=== PATIENT | female | born 1970 ===

== ENCOUNTER → 2020-04-07 15:41 | Outpatient (BNV) | payer OTHER, SELFPAY | PROVIDERS: PCP Internal Medicine; Visit Provider Internal Medicine | DX: D72.829 Elevated white blood cell count, unspecified (principal); Z00-Z99 Factors influencing health status and contact with health services; Z85.71 Personal history of Hodgkin lymphoma; Z92.21 Personal history of antineoplastic chemotherapy | CPT/HCPCS: 99213; 99214 ==

== ENCOUNTER 2020-05-06 16:45 | Emergency (ER) | payer OTHER, SELFPAY ==
[2020-05-06 16:51] VITALS: BP 174/102; PULSE 79; RESP 16; TEMP 36.7; O2SAT 100; BMI 32.5
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
== END 2020-05-06 18:53 | disposition home or self-care (01) ==
PROVIDERS: Emergency Provider Emergency Medicine; PCP Internal Medicine
DX: S29.012A Strain of muscle and tendon of back wall of thorax, initial encounter (principal); M54.6 Pain in thoracic spine; V43.52XA Car driver injured in collision with other type car in traffic accident, initial encounter; Y93.9 Activity, unspecified; Y92.410 Unspecified street and highway as the place of occurrence of the external cause; Y99.9 Unspecified external cause status; Z87.891 Personal history of nicotine dependence; Z79.899 Other long term (current) drug therapy
CPT/HCPCS: 99283; 99284

== ENCOUNTER 2020-07-15 14:41 | Outpatient (REF) | payer OTHER, SELFPAY ==
--- NOTE | 2020-07-15 14:49 | XR_ITS ---
EXAMINATION: XR CERVICAL SPINE XR LUMBAR SPINE XR ELBOW, RIGHT XR HAND, LEFT CLINICAL INFORMATION: Pain. COMPARISON: None TECHNIQUE: Lumbar spine 3 views. Cervical spine 3 views, left hand 3 views and right elbow 3 views. FINDINGS: LUMBAR SPINE: There is maintained lumbar lordosis. The vertebral heights, alignment and disc heights are normal. There is no visible acute fracture, dislocation or subluxation seen. The SI joints are symmetrical. The paravertebral soft tissues are normal. CERVICAL SPINE: There is normal cervical lordosis. There is loss of C5-C6 and C6-C7 disc heights. Rest the disc heights, vertebral heights and alignment is normal. No visible acute fracture, dislocation or lytic process seen. The paravertebral soft tissues are normal. RIGHT ELBOW: There is no visible acute fracture, dislocation or subluxation. There is mild spurring along the anterior coronoid process of the ulna. No loose body seen. No bony erosive changes. No abnormal joint effusion. LEFT HAND: There is minimal loss of 1st MCP joint with periarticular spurring. Mild periapical spurring IP joint 1st digit with old small avulsion bone injury noted. Rest of the left hand is unremarkable. The soft tissues are normal. XR/XR elbow RT min 3V IMPRESSION: 1. Unremarkable lumbar spine exam. 2. Mild degenerative changes C5-C6 and C6-C7 disc levels. 3. Mild degenerative spurring anterior groin process right elbow. No loose bodies, joint effusion or fracture. 4. Degenerative osteophytic changes MCP joint and PIP joint 1st digit. There is an old avulsion injury PIP joint 1st digit.
--- NOTE | 2020-07-15 14:49 | XR_ITS ---
EXAMINATION: XR CERVICAL SPINE XR LUMBAR SPINE XR ELBOW, RIGHT XR HAND, LEFT CLINICAL INFORMATION: Pain. COMPARISON: None TECHNIQUE: Lumbar spine 3 views. Cervical spine 3 views, left hand 3 views and right elbow 3 views. FINDINGS: LUMBAR SPINE: There is maintained lumbar lordosis. The vertebral heights, alignment and disc heights are normal. There is no visible acute fracture, dislocation or subluxation seen. The SI joints are symmetrical. The paravertebral soft tissues are normal. CERVICAL SPINE: There is normal cervical lordosis. There is loss of C5-C6 and C6-C7 disc heights. Rest the disc heights, vertebral heights and alignment is normal. No visible acute fracture, dislocation or lytic process seen. The paravertebral soft tissues are normal. RIGHT ELBOW: There is no visible acute fracture, dislocation or subluxation. There is mild spurring along the anterior coronoid process of the ulna. No loose body seen. No bony erosive changes. No abnormal joint effusion. LEFT HAND: There is minimal loss of 1st MCP joint with periarticular spurring. Mild periapical spurring IP joint 1st digit with old small avulsion bone injury noted. Rest of the left hand is unremarkable. The soft tissues are normal. XR/XR cervical spine 2V IMPRESSION: 1. Unremarkable lumbar spine exam. 2. Mild degenerative changes C5-C6 and C6-C7 disc levels. 3. Mild degenerative spurring anterior groin process right elbow. No loose bodies, joint effusion or fracture. 4. Degenerative osteophytic changes MCP joint and PIP joint 1st digit. There is an old avulsion injury PIP joint 1st digit.
== END 2020-07-15 14:42 | disposition home or self-care (01) ==
LOC: HO.XRAY 14:41
PROVIDERS: PCP Internal Medicine; Visit Provider Internal Medicine
DX: M54.2 Cervicalgia (principal); M54.5 Low back pain; M25.521 Pain in right elbow; M79.642 Pain in left hand
CPT/HCPCS: 72040; 72100; 73080; 73130

== ENCOUNTER 2020-10-13 15:54 | Outpatient (REF) | payer OTHER, SELFPAY ==
[2020-10-13 16:25] LABS: MANUAL DIFF FLAG NO
[2020-10-13 16:35] LABS: Basophils Absolute Auto 0.1 X10*3/uL (0.0-0.2); Basophils Percent Auto 1.1 % (0-2); Eosinophils Absolute Auto 0.3 X10*3/uL (0.0-0.4); Eosinophils Percent Auto 3.4 % (0-4); Hemoglobin 12.5 g/dl (12.0-16.0); Imm Gran Abs Auto 0.03 X10*3/uL (0.00-0.03); Imm Gran Pct Auto 0.3 % (0.0-0.4); Lymphocytes Absolute Auto 3.4 X10*3/uL (1.2-4.9); Lymphocytes Percent Auto 35.8 % (20-40); Mean Corpuscular HGB Conc 32.1 g/dl (31.0-35.0); Mean Corpuscular Volume 87.4 fL (80-98); Mean Platelet Volume 11.6 fL (9.4-12.3); Monocytes Absolute Auto 0.7 X10*3/uL (0.1-1.2); Monocytes Percent Auto 7.5 % (2-11); Neutrophils Percent Auto 51.9 % (45-73); Platelet Count 314 X10*3/uL (160-400); Red Blood Count 4.46 X10*6/uL (4.20-5.50); Red Cell Distribution Width 14.4 % (11.0-16.0); White Blood Count 9.6 X10*3/uL (4.8-10.8)
[2020-10-13 17:04] LABS: Alanine Aminotransferase 25 U/L (0-31); Albumin Level 4.2 g/dL (3.5-5.0); Alkaline Phosphatase 140 U/L (39-117); Anion Gap 12 (12-20); Aspartate Amino Transferase 20 U/L (5-31); Bilirubin Total 0.3 mg/dL (0.0-1.0); Blood Urea Nitrogen 12 mg/dL (9-16); Calcium 9.6 mg/dL (8.4-10.2); Carbon Dioxide 27 mmol/L (22-29); Chloride 105 mmol/L (96-108); Estimated Glomerular Filt Rate > 60; Glucose Random 73 mg/dL (60-115); Potassium 4.1 mmol/L (3.3-5.1); Sodium 140 mmol/L (135-145); Total Protein 6.7 g/dL (6.5-8.0)
[2020-10-13 18:16] LABS: Erythrocyte Sedimentation Rate 10 MM/HR (0-20)
== END 2020-10-13 15:55 | disposition home or self-care (01) ==
LOC: HO.LAB 15:54
PROVIDERS: PCP Internal Medicine; Visit Provider Internal Medicine
DX: C81.90 Hodgkin lymphoma, unspecified, unspecified site (principal)
CPT/HCPCS: 36415; 80053; 85025; 85652

== ENCOUNTER 2021-04-06 14:01 | Outpatient (REF) | payer OTHER, SELFPAY ==
--- NOTE | ~2021-04-06 | MM_ITS ---
EXAMINATION: MM SCREENING DIGITAL BREAST TOMOSYNTHESIS, BILATERAL CLINICAL INFORMATION: Left breast cancer, 2013. NHL 2015. Due for yearly. COMPARISON: Mammography: 12/20/2019, 12/14/2018, 11/16/2017. TECHNIQUE: Digital breast tomosynthesis is performed in both the craniocaudal and mediolateral oblique views along with computer-aided detection (CAD). Synthesized 2D images are generated from the tomosynthesis. FINDINGS: There are scattered areas of fibroglandular density (ACR BI-RADS breast composition Category b). There are minor stable post therapy changes left breast similar to prior exams. No significant masses, abnormal calcifications, or other abnormalities in either breast. No developing density. The axilla are unremarkable. MM/MM tomosynthesis screening BI IMPRESSION: There are no significant changes from prior exams. Post therapy changes left breast, stable. ASSESSMENT: BI-RADS 2: Benign RECOMMENDATION: Routine annual mammography screening. This patient's information was entered into a reminder system with a target due date for their next mammogram.
== END 2021-04-06 14:02 | disposition home or self-care (01) ==
LOC: HO.MAMMO 14:01
PROVIDERS: PCP Internal Medicine; Visit Provider Internal Medicine
DX: Z12.31 Encounter for screening mammogram for malignant neoplasm of breast (principal)
CPT/HCPCS: 77063; 77067

== ENCOUNTER 2022-04-13 15:43 | Outpatient (REF) | payer OTHER, SELFPAY ==
--- NOTE | ~2022-04-13 | MM_ITS ---
EXAMINATION: MM SCREENING DIGITAL BREAST TOMOSYNTHESIS, BILATERAL CLINICAL INFORMATION: Left lumpectomy for breast cancer, 2013. History non-Hodgkin's lymphoma, 2015. Due for yearly. COMPARISON: Mammography: 04/06/2021, 12/20/2019, 12/14/2018 TECHNIQUE: Digital breast tomosynthesis is performed in both the craniocaudal and mediolateral oblique views along with computer-aided detection (CAD). Synthesized 2D images are generated from the tomosynthesis. FINDINGS: There are scattered areas of fibroglandular density (ACR BI-RADS breast composition Category b). There are post therapy changes on the left with mild reduced breast size and stable scarring. Again, there is benign dystrophic calcification within the scar. Neither breast shows interval mass or architectural abnormality or abnormal calcifications. No developing density. The axilla and skin contours are unremarkable. No significant changes. MM/MM tomosynthesis screening BI IMPRESSION: -No mammographic evidence of malignancy. -Stable benign post therapy changes left breast. ASSESSMENT: BI-RADS 2: Benign RECOMMENDATION: Routine annual mammography screening. This patient's information was entered into a reminder system with a target due date for their next mammogram.
== END 2022-04-13 15:44 | disposition home or self-care (01) ==
LOC: HO.MAMMO 15:43
PROVIDERS: PCP Internal Medicine; Visit Provider Internal Medicine
DX: Z12.31 Encounter for screening mammogram for malignant neoplasm of breast (principal)
CPT/HCPCS: 77063; 77067

== ENCOUNTER 2023-01-02 16:14 | Outpatient (AMB) | payer OTHER, SELFPAY ==
--- NOTE | 2023-01-02 16:17 | A.OFFPC_ITS ---
Vital Signs 01/02/23 16:18 Height 5 ft Weight 171 lb BMI 33.4 BP 122/80 Blood Pressure Location Lt brachial Position Sitting Intake Visit Reasons: PHYSICAL Intake Note: Patient here for a physical exam Yoghurt Maker Required: No Accompanied by: Self / Same As Patient Allergies fluconazole [From DIFLUCAN] Allergy (Mild, Verified 01/02/23 16:27) RASH codeine [CODEINE] Allergy (Unknown, Verified 01/02/23 16:27) migriane Medication List - Last Reconciled 01/02/23 by Mariella Morel MD No Known Home Meds Tobacco use date assessed: 07/06/22 Dental Screening Dental Screen Date: 01/02/23 Did you have a dental visit in the last 12 months?: Yes Did you have a dental problem in the last 6 months where you did not have access to dental care?: No Was dental information given to patient?: Patient has dentist HPI HPI Comments History of Present Illness Details This is a 52-year-old female that comes for her physical exam. She has history of Hodgkin's lymphoma and breast cancer in remission. Last colonoscopy was 2019 showing fragments of tubular adenoma and next colonoscopy should be 2024. Last mammogram was March 2022 and was normal. She will call OBGYN to make an appointment for Pap smear. No chest pain or shortness of breath. Some leg edema and pain and is asking for compression stockings. COUNT INCLUDES THE [facility] Medical History Breast cancer Left hand pain Low back pain Malignant lymphoma, non-Hodgkin's Neck pain Right elbow pain Surgical History History of section History of colonoscopy History of left breast biopsy History of left salpingo-oophorectomy History of mammogram History of right salpingo-oophorectomy Family History Father Stroke FH: testicular cancer Mother Hypertension Asthma Maternal Grandmother Leukemia Social History (Updated 01/02/23 @ 16:31 by Mariella Morel MD) Household Members: Family Housing: Apartment Alcohol intake: current Alcohol intake frequency: holidays/special occasions only Alcohol type: wine and hard liquor Patient Tobacco Use Status: Current someday Tobacco user Tobacco use type: Cigarette e-Cigarette/Vaping Use: Never Used Second Hand Smoke Exposure: No service: No Current occupational status: employed Current occupational exposures/hazards: No Cognitive needs: No Hearing needs: No Vision needs: No Questionnaire Thrive Questionnaire Date Thrive assessed: 07/06/22 LUPE-7 AMB Questionnaire LUPE-7 Date LUPE - 7 assessed: 07/06/22 Source: Developed by Drs. Reinier Conley, Laure Curry, Gume Power and colleagues, with an educational jose from [employer]. Review of Systems Const All systems reviewed & are unremarkable except as noted in HPI and below Eyes Reports no additional complaints, Denies change in vision and Denies other visual disturbances Card Denies chest pain at rest, Denies chest pain with activity, Denies edema, Denies irregular heart rhythm, Denies claudication, Denies dyspnea, Denies dyspnea on exertion, Denies orthopnea, Denies paroxysmal nocturnal dyspnea and Denies slow heart rate Resp Denies cough, Denies dyspnea and Denies dyspnea on exertion GI Denies abdominal pain, Denies change in bowel habits, Denies excessive flatus, Denies nausea and Denies vomiting Denies urinary incontinence, Denies urinary hesitancy and Denies urinary urgency Musc Denies abnormal gait, Denies atrophy, Denies deformity and Denies limited range of motion Skin/Breast Denies bleeding lesions, Denies changing lesions and Denies rash Neuro Denies abnormal gait and Denies lack of coordination Physical exam (Primary Care) Vital Signs: Last Vital Signs BP 122/80 01/02/23 16:18 BMI result Body Mass Index 33.4 Tobacco/Smoking Status: Tobacco use Status Tobacco use date assessed 07/06/22 01/02/23 16:21 Patient Tobacco Use Status Current someday Tobacco 01/02/23 16:31 Tobacco use type Cigarette 01/02/23 16:31 e-Cigarette/Vaping Use Never Used 01/02/23 16:31 Thrive Assessment: Date of Thrive Assessment Date Thrive assessed 07/06/22 01/02/23 16:21 Const Orientation/consciousness: patient oriented x3 HENMT Head: Yes normal to inspection, Yes normocephalic and Yes atraumatic Ears: external ears normal Eyes General: appearance normal, both eyes and all related structures Eyelids: Yes eyelids normal Conjunctivae: conjunctivae normal Neck Neck: Yes normal visual inspection and Yes supple Resp Effort & Inspection: normal respiratory effort Auscultation: clear to auscultation bilaterally Cardio Jugular venous distension: no JVD Rate: regular rate Rhythm: regular rhythm Heart sounds: S1 normal heart sound present and S2 normal heart sound present GI Inspection: Yes normal to inspection Palpation (GI): Soft to palpation and nontender Auscultation: normal bowel sounds Skin General skin exam: no rashes or lesions noted Neuro General: patient oriented x3 and no focal motor deficits Extrem General: Yes full ROM Psych Appearance: grossly normal Assessment and Plan Assessment & Plan (1) Physical exam: Code(s): Z00.00 - Encounter for general adult medical examination without abnormal findings Plan: Repeat in a year Orders: Orders Lipid Panel Today E66.9 - Obesity, unspecified, Z68.32 - Body mass index [BMI] 32.0-32.9, adult Comprehensive [place]. Panel Fast Today E66.9 - Obesity, unspecified, Z68.32 - Body mass index [BMI] 32.0-32.9, adult Medications: New [compression stockings] As directed 1 ea 3RF R60.0 - Localized edema omeprazole 20 mg PO DAILY PRN 90 caps 0RF heartburn 90 days [compression stockings] As directed 1 ea 3RF R60.0 - Localized edema Coding Level of Care Code Est Pt Prev Care 40-64y(64422) Diagnoses Physical exam Z00.00 Time Spent (min) 32
[2023-01-02 16:18] VITALS: BP 122/80; BMI 33.4
== END 2023-01-02 16:39 | disposition home or self-care (01) ==
PROVIDERS: PCP Internal Medicine; Visit Provider Internal Medicine
DX: Z00.00 Encounter for general adult medical examination without abnormal findings (principal)
CPT/HCPCS: 99396

== ENCOUNTER 2023-04-19 15:43 | Outpatient (REF) | payer OTHER, SELFPAY ==
--- NOTE | ~2023-04-19 | MM_ITS ---
EXAMINATION: MM SCREENING DIGITAL BREAST TOMOSYNTHESIS, BILATERAL CLINICAL INFORMATION: Screening. Asymptomatic. The patient is status post left breast cancer surgery. The patient has a remote history of non-Hodgkin lymphoma. COMPARISON: Mammography: This study is compared with prior exams dating back to 2019. TECHNIQUE: Digital breast tomosynthesis is performed in both the craniocaudal and mediolateral oblique views along with computer-aided detection (CAD). Synthesized 2D images are generated from the tomosynthesis. FINDINGS: There are scattered areas of fibroglandular density (ACR BI-RADS breast composition Category b). There are no significant masses, abnormal calcifications, or other abnormalities. There are postsurgical changes in the retroareolar region of the left breast with associated, benign, dystrophic calcification. MM/MM tomosynthesis screening BI IMPRESSION: No mammographic evidence of malignancy. ASSESSMENT: BI-RADS BI-RADS 2 - Benign Findings RECOMMENDATION: Routine annual mammography screening. 1 year F/U This examination should not preclude the clinical evaluation of a suspicious palpable abnormality. This patient's information was entered into a reminder system with a target due date for their next mammogram.
== END 2023-04-19 15:44 | disposition home or self-care (01) ==
LOC: HO.MAMMO 15:43
PROVIDERS: PCP Internal Medicine; Visit Provider Internal Medicine
DX: Z12.31 Encounter for screening mammogram for malignant neoplasm of breast (principal)
CPT/HCPCS: 77063; 77067

== ENCOUNTER → 2023-04-19 16:00 | Outpatient (BNV) | payer OTHER, SELFPAY | PROVIDERS: PCP Internal Medicine; Visit Provider Radiology Diagnostic Radiology | DX: Z12.31 Encounter for screening mammogram for malignant neoplasm of breast (principal) | CPT/HCPCS: 77063; 77067 ==

== ENCOUNTER 2023-11-14 17:05 | Outpatient (AMB) | payer OTHER, SELFPAY ==
--- NOTE | 2023-11-14 17:08 | MHC.PC.OV ---
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 Accompanied by: Self / Same As Patient Allergies fluconazole [From DIFLUCAN] Allergy (Mild, Verified 11/14/23 17:26) RASH codeine [CODEINE] Allergy (Unknown, Verified 11/14/23 17:26) migriane Medication List - Last Reconciled 11/14/23 by Mariella Morel MD [compression stockings As directed] omeprazole 20 mg PO DAILY PRN 90 days Tobacco use date assessed: 11/14/23 Dental Screening Dental Screen Date: 11/14/23 Did you have a dental visit in the last 12 months?: Yes Did you have a dental problem in the last 6 months where you did not have access to dental care?: No Was dental information given to patient?: Patient has dentist HPI HPI Comments History of Present Illness Details This is a 53-year-old female with obesity with BMI of 35.3, history of Hodgkin lymphoma and chronic GERD that comes today complaining of hand paresthesia more prominent in the left than in the right. She is right-handed. This happens at bedtime and started few weeks ago. Has full active range of motion. I will order a nerve conduction study. Advised to get [id number] wrist brace with metal. She is obese and I will start her on weight goal be. Hodgkin lymphoma is follow by Hematology-Oncology. Chronic GERD has been stable with PPIs as needed. No chest pain or shortness on breath. [facility], [facility] Medical History (Updated 11/14/23 @ 18:08 by Mariella Morel MD) Left hand pain Low back pain Right elbow pain Neck pain Malignant lymphoma, non-Hodgkin's Breast cancer Surgical History History of colonoscopy History of mammogram History of left salpingo-oophorectomy History of right salpingo-oophorectomy History of left breast biopsy History of section Family History Father Stroke FH: testicular cancer Mother Hypertension Asthma Maternal Grandmother Leukemia Social History Household Members: Family Housing: Apartment Alcohol intake: current Alcohol intake frequency: holidays/special occasions only Alcohol type: wine and hard liquor Patient Tobacco Use Status: Former Tobacco user Tobacco use type: Cigarette e-Cigarette/Vaping Use: Never Used Second Hand Smoke Exposure: No service: No Current occupational status: employed Current occupational exposures/hazards: No Cognitive needs: No Hearing needs: No Vision needs: No Questionnaire PHQ-9 Over the last 2 weeks, how often have you been bothered by any of the following problems? 1. Little interest or pleasure in doing things: not at all 2. Feeling down, depressed, or hopeless: not at all 3. Trouble falling or staying asleep, or sleeping too much: not at all 4. Feeling tired or having little energy: not at all 5. Poor appetite or overeating: not at all 6. Feeling bad about yourself - or that you are a failure or have let yourself or your family down: not at all 7. Trouble concentrating on things, such as reading the newspaper or watching television: not at all 8. Moving or speaking so slowly that other people could have noticed. Or the opposite - being so fidgety or restless that you have been moving around a lot more than usual: not at all 9. Thoughts that you would be better off or of hurting yourself in some way: not at all Total score: 0 Depression Screening Interpretation: Negative Depression Screening Done: Yes 41535 - PHQ-9 Billing: Yes Source: Developed by Drs. Reinier Conley, Laure Curry, Gume Power and colleagues, with an educational jose from [employer]. Thrive Questionnaire Date Thrive assessed: 07/06/22 AUDIT C Alcohol Use Questionnaire (AUDIT-C) 1. How often do you have a drink containing alcohol?: Never Total Score: 0 Score Reviewed/Action Taken: No LUPE-7 AMB Questionnaire LUPE-7 Date LUPE - 7 assessed: 11/14/23 Feeling nervous, anxious, or on edge: 0 = Not at all Not being able to stop or control worryin = Not at all Worrying too much about different things: 0 = Not at all Trouble relaxin = Not at all Being so restless that it is hard to sit still: 0 = Not at all Becoming easily annoyed or irritable: 0 = Not at all Feeling afraid as if something awful might happen: 0 = Not at all Total LUPE-7 score (0-4 normal; 5-9 mild; 10-14 moderate; 15-21 severe): 0 Source: Developed by Drs. Reinier Conley, Laure Curry, Gume Power and colleagues, with an educational jose from [employer]. LUPE-7 Assessment Billing LUPE-7 Assessment Tool: LUPE-7 Assessment 51303 Review of Systems Const All systems reviewed & are unremarkable except as noted in HPI and below Card Denies chest pain at rest, Denies chest pain with activity, Denies edema, Denies irregular heart rhythm, Denies claudication, Denies dyspnea, Denies dyspnea on exertion, Denies orthopnea, Denies paroxysmal nocturnal dyspnea and Denies slow heart rate Resp Denies cough, Denies dyspnea and Denies dyspnea on exertion Musc Reports numbness Neuro Reports numbness Physical exam (Primary Care) Vital Signs: Last Vital Signs BP 126/80 11/14/23 17:09 BMI result Body Mass Index 35.3 BMI Assessment/Plan discussion: High BMI High, discussed plan: lifestyle, weight reduction, dietary and physical activity Tobacco/Smoking Status: Tobacco use Status Tobacco use date assessed 11/14/23 11/14/23 17:14 Patient Tobacco Use Status Former Tobacco user 11/14/23 17:14 Tobacco use type Cigarette 11/14/23 17:14 e-Cigarette/Vaping Use Never Used 11/14/23 17:14 PHQ-9: PHQ-9 Score PHQ-9: Total score 0 11/14/23 17:29 Depression Screening Interpretation: Negative Thrive Assessment: Date of Thrive Assessment Date Thrive assessed 07/06/22 11/14/23 17:14 Resp Effort & Inspection: normal respiratory effort Auscultation: clear to auscultation bilaterally Cardio Jugular venous distension: no JVD Rate: regular rate Rhythm: regular rhythm Heart sounds: S1 normal heart sound present and S2 normal heart sound present Extrem Other: Negative Tinel and Phalen test. General: Yes full ROM Psych Appearance: grossly normal Assessment and Plan Assessment & Plan (1) Hodgkin lymphoma: Code(s): C81.90 - Hodgkin lymphoma, unspecified, unspecified site Qualifiers: Hodgkin lymphoma type: unspecified type Lymphoma site: unspecified region Qualified Code(s): C81.90 - Hodgkin lymphoma, unspecified, unspecified site Plan: Follow-up with Hematology-Oncology. (2) Obesity (BMI 35.0-39.9 without comorbidity): Code(s): E66.9 - Obesity, unspecified Plan: Start Wegovy. BMI goal is less than 30. (3) Chronic GERD: Code(s): K21.9 - Gastro-esophageal reflux disease without esophagitis Plan: Continue PPIs. (4) Hand paresthesia: Code(s): R20.2 - Paresthesia of skin Plan: Order nerve conduction study. Orders: Orders NE nerve conduction velocity Today R20.2 - Paresthesia of skin Lipid Panel Today E66.9 - Obesity, unspecified, Z68.32 - Body mass index [BMI] 32.0-32.9, adult Comprehensive St[place]. Panel Fast Today E66.9 - Obesity, unspecified, Z68.32 - Body mass index [BMI] 32.0-32.9, adult Medications: New semaglutide (weight loss) (Wegovy) administer weeks 1 through 4 of therapy 0.25 mg (0.5 mL) subcut QWEEK 2 mL 0RF 4 weeks Refilled omeprazole 20 mg PO DAILY PRN 90 caps 0RF heartburn 90 days Coding Level of Care Code Est Pt Level 4 (93816) Diagnoses Hodgkin lymphoma, unspecified Hodgkin lymphoma type, unspecified body region C81.90 Hodgkin lymphoma type: unspecified type Lymphoma site: unspecified region Obesity (BMI 35.0-39.9 without comorbidity) E66.9 Chronic GERD K21.9 Hand paresthesia R20.2 Additional Codes LUPE-7 Assessment Billing - LUPE-7 Assessment Tool: LUPE-7 Assessment 77616 ([id number]) Time Spent (min) 24
[2023-11-14 17:09] VITALS: BP 126/80; BMI 35.3
== END 2023-11-14 17:34 | disposition home or self-care (01) ==
PROVIDERS: PCP Internal Medicine; Visit Provider Internal Medicine
DX: C81.90 Hodgkin lymphoma, unspecified, unspecified site (principal); E66.9 Obesity, unspecified; Z68.35 Body mass index [BMI] 35.0-35.9, adult; K21.9 Gastro-esophageal reflux disease without esophagitis; R20.2 Paresthesia of skin
CPT/HCPCS: 99214

== ENCOUNTER 2023-11-28 09:33 | Outpatient (REF) | payer OTHER, SELFPAY ==
--- NOTE | 2023-11-28 09:36 | EMG_ITS ---
Bilateral median and ulnar motor and sensory studies were performed. Bilateral radial and median and lateral antecubital brachial sensory studies were performed and paraspinal muscles were tested with a needle. IMPRESSION: Mild to moderate bilateral median neuropathy across carpal tunnel. MD ALEJANDRO Griggs/LARY / [id number]
== END 2023-11-28 09:34 | disposition home or self-care (01) ==
LOC: HO.NEURO 09:33
PROVIDERS: PCP Internal Medicine; Visit Provider Internal Medicine
DX: R20.2 Paresthesia of skin (principal)
CPT/HCPCS: 95886; 95913

== ENCOUNTER 2024-01-06 07:56 | Outpatient (REF) | payer OTHER, SELFPAY ==
[2024-01-06 09:21] LABS: Alanine Aminotransferase 36 U/L (0-31); Albumin Level 4.2 g/dL (3.5-5.0); Alkaline Phosphatase 130 U/L (39-117); Anion Gap 16 (12-20); Aspartate Amino Transferase 23 U/L (5-31); Bilirubin Total 0.6 mg/dL (0.0-1.0); Blood Urea Nitrogen 9 mg/dL (9-16); Calcium 9.8 mg/dL (8.4-10.2); Carbon Dioxide 23 mmol/L (22-29); Chloride 108 mmol/L (96-108); Cholesterol 175 mg/dL (<200); Estimated Glomerular Filt Rate > 60; Glucose Fasting 89 mg/dL (60-99); HDL Cholesterol 48 mg/dL (>40); LDL Cholesterol Calculated 97 mg/dL (<100); Potassium 4.4 mmol/L (3.3-5.1); Sodium 143 mmol/L (135-145); Triglycerides 150 mg/dL (<150)
== END 2024-01-06 07:57 | disposition home or self-care (01) ==
LOC: HO.LAB 07:56
PROVIDERS: PCP Internal Medicine; Visit Provider Internal Medicine
DX: E66.9 Obesity, unspecified (principal); Z68.32 Body mass index [BMI] 32.0-32.9, adult
CPT/HCPCS: 36415; 80053; 80061

== ENCOUNTER 2024-01-08 15:47 | Outpatient (AMB) | payer OTHER, SELFPAY ==
--- NOTE | 2024-01-08 15:48 | A.OFFPC_ITS ---
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 Accompanied by: Self / Same As Patient Allergies fluconazole [From DIFLUCAN] Allergy (Mild, Verified 01/08/24 16:01) RASH codeine [CODEINE] Allergy (Unknown, Verified 01/08/24 16:01) migriane Medication List - Last Reconciled 01/08/24 by Mariella Morel MD [compression stockings As directed] omeprazole 20 mg PO DAILY PRN 90 days semaglutide (weight loss) (Wegovy) 0.25 mg (0.5 mL) subcut QWEEK 4 weeks Tobacco use date assessed: 11/14/23 Dental Screening Dental Screen Date: 11/14/23 HPI HPI Comments History of Present Illness Details A 53-year-old female with Hodgkin's lymphoma in remission that comes for her physical exam. Hodgkin lymphoma is follow by Hematology-Oncology. Mammogram done less than a year ago. Colonoscopy done 2019 showing tubular jamie octaviano and will be refer to another colonoscopy through open access. Denies any acute complaint. [facility] Medical History Left hand pain Low back pain Right elbow pain Neck pain Malignant lymphoma, non-Hodgkin's Breast cancer Surgical History History of colonoscopy History of mammogram History of left salpingo-oophorectomy History of right salpingo-oophorectomy History of left breast biopsy History of section Family History Father Stroke FH: testicular cancer Mother Hypertension Asthma Maternal Grandmother Leukemia Social History Household Members: Family Housing: Apartment Alcohol intake: current Alcohol intake frequency: holidays/special occasions only Alcohol type: wine and hard liquor Patient Tobacco Use Status: Former Tobacco user Tobacco use type: Cigarette e-Cigarette/Vaping Use: Never Used Second Hand Smoke Exposure: No service: No Current occupational status: employed Current occupational exposures/hazards: No Cognitive needs: No Hearing needs: No Vision needs: No Questionnaire Thrive Questionnaire Date Thrive assessed: 07/06/22 LUPE-7 AMB Questionnaire LUPE-7 Date LUPE - 7 assessed: 11/14/23 Source: Developed by Drs. Reinier Conley, Laure Curry, Gume Power and colleagues, with an educational jose from [employer]. Review of Systems Const All systems reviewed & are unremarkable except as noted in HPI and below Card Denies chest pain at rest, Denies chest pain with activity, Denies edema, Denies irregular heart rhythm, Denies claudication, Denies dyspnea, Denies dyspnea on exertion, Denies orthopnea, Denies paroxysmal nocturnal dyspnea and Denies slow heart rate Resp Denies cough, Denies dyspnea and Denies dyspnea on exertion GI Denies abdominal pain, Denies change in bowel habits, Denies excessive flatus, Denies nausea and Denies vomiting Physical exam (Primary Care) Vital Signs: Last Vital Signs BP 122/80 01/08/24 15:50 BMI result Body Mass Index 35.5 BMI Assessment/Plan discussion: High BMI High, discussed plan: lifestyle, weight reduction, dietary and physical activity Tobacco/Smoking Status: Tobacco use Status Tobacco use date assessed 11/14/23 01/08/24 15:55 Patient Tobacco Use Status Former Tobacco user 01/08/24 15:55 Tobacco use type Cigarette 01/08/24 15:55 e-Cigarette/Vaping Use Never Used 01/08/24 15:55 Thrive Assessment: Date of Thrive Assessment Date Thrive assessed 07/06/22 01/08/24 15:55 [facility] Head: Yes normal to inspection, Yes normocephalic and Yes atraumatic Ears: external ears normal Eyes General: appearance normal, both eyes and all related structures Eyelids: Yes eyelids normal Conjunctivae: conjunctivae normal Neck Neck: Yes normal visual inspection and Yes supple Resp Effort & Inspection: normal respiratory effort Auscultation: clear to auscultation bilaterally Cardio Jugular venous distension: no JVD Rate: regular rate Rhythm: regular rhythm Heart sounds: S1 normal heart sound present and S2 normal heart sound present GI Inspection: Yes normal to inspection Palpation (GI): Soft to palpation and nontender Auscultation: normal bowel sounds Skin General skin exam: no rashes or lesions noted Neuro General: no focal motor deficits Extrem General: Yes full ROM Psych Appearance: grossly normal Assessment and Plan Assessment & Plan (1) Physical exam: Code(s): Z00.00 - Encounter for general adult medical examination without abnormal findings Plan: Repeat in a year. (2) Hodgkin lymphoma: Code(s): C81.90 - Hodgkin lymphoma, unspecified, unspecified site Qualifiers: Hodgkin lymphoma type: unspecified type Lymphoma site: unspecified region Qualified Code(s): C81.90 - Hodgkin lymphoma, unspecified, unspecified site Plan: Follow-up with Hematology-Oncology. Orders: Referrals Open Access Screening Colonoscopy Referral Z12.11 - Encounter for screening for malignant neoplasm of colon Coding Level of Care Code Est Pt Prev Care 40-64y(19157) Diagnoses Physical exam Z00.00 Hodgkin lymphoma, unspecified Hodgkin lymphoma type, unspecified body region C81.90 Hodgkin lymphoma type: unspecified type Lymphoma site: unspecified region Time Spent (min) 31
[2024-01-08 15:50] VITALS: BP 122/80; BMI 35.5
== END 2024-01-08 16:14 | disposition home or self-care (01) ==
PROVIDERS: PCP Internal Medicine; Visit Provider Internal Medicine
DX: Z00.00 Encounter for general adult medical examination without abnormal findings (principal); C81.90 Hodgkin lymphoma, unspecified, unspecified site
CPT/HCPCS: 99396

== ENCOUNTER 2024-04-24 15:40 | Outpatient (REF) | payer OTHER, SELFPAY ==
--- NOTE | ~2024-04-24 | MM_ITS ---
EXAMINATION: MM SCREENING DIGITAL BREAST TOMOSYNTHESIS, BILATERAL CLINICAL INFORMATION: Screening. Asymptomatic. History of left breast cancer post lumpectomy. COMPARISON: Mammography: Comparison is made with available priors TECHNIQUE: Digital breast mammography with tomosynthesis is performed in both the craniocaudal and mediolateral oblique views along with computer-aided detection (CAD). FINDINGS: There are scattered areas of fibroglandular density (ACR BI-RADS breast composition Category b). Subtle left post lumpectomy changes are stable. There are no significant masses, abnormal calcifications, or other abnormalities. MM/MM tomosynthesis screening BI IMPRESSION: No mammographic evidence of malignancy. ASSESSMENT: BI-RADS BI-RADS 2 - Benign Findings RECOMMENDATION: Routine annual mammography screening. 1 year F/U This examination should not preclude the clinical evaluation of a suspicious palpable abnormality. This patient's information was entered into a reminder system with a target due date for their next mammogram. Electronically signed by: Nisha Trujillo DO 04/25/2024 11:00 AM [place]
== END 2024-04-24 15:41 | disposition home or self-care (01) ==
LOC: HO.MAMMO 15:40
PROVIDERS: PCP Internal Medicine; Visit Provider Internal Medicine
DX: Z12.31 Encounter for screening mammogram for malignant neoplasm of breast (principal)
CPT/HCPCS: 77063; 77067

== ENCOUNTER → 2024-04-24 15:42 | Outpatient (BNV) | payer OTHER, SELFPAY | PROVIDERS: PCP Internal Medicine; Visit Provider Internal Medicine | DX: Z12.31 Encounter for screening mammogram for malignant neoplasm of breast (principal) | CPT/HCPCS: 77063; 77067 ==

== ENCOUNTER 2025-03-21 18:29 | Emergency (ER) | payer OTHER, SELFPAY ==
--- NOTE | ~2025-03-21 | CT_ITS ---
CLINICAL HISTORY: Stroke Protocol CT angiography head and neck with contrast. 3D Postprocessing. Comparison: CT/SR - CT HEAD FOR STROKE - 03/21/25 18:40 EDT Findings: Aortic arch and cervical great vessels are patent with no aneurysm, dissection, hemodynamically significant stenoses, or occlusion. Intracranial arteries are patent. No aneurysm, dissection, hemodynamically significant stenoses, or occlusion. No abnormal intracranial enhancement. Circumscribed 6 mm nodule within the left lobe of the thyroid gland. Lung apices clear. No acute fracture. IMPRESSION: Patent head and neck CTA. This document has been electronically signed by: Brissa Burciaga MD on 03/21/2025 19:41:31
--- NOTE | ~2025-03-21 | CT_ITS ---
CLINICAL HISTORY: Stroke Protocol CT head without contrast Comparison: None provided Findings: No intra-axial mass, midline shift, hydrocephalus, or acute hemorrhage. No significant atrophy. Very mild white matter disease is noted. There is no sinus or mastoid fluid. The orbits are unremarkable. There is no acute fracture. IMPRESSION: 1. No acute intracranial findings. This document has been electronically signed by: Brissa Burciaga MD on 03/21/2025 19:05:03
[2025-03-21 18:33] VITALS: BP 158/103; PULSE 88; RESP 16; TEMP 36.4; O2SAT 100; BMI 35.2
--- NOTE | 2025-03-21 18:34 | ED_ITS ---
HPI - General Adult General Chief complaint: Neuro Symptoms/Deficit Stated complaint: right side face numbness Time Seen by Provider: 03/21/25 18:49 Related Data Previous Rx's ?Medication ?Instructions ?Recorded compression stockings #1 ea 01/02/23 semaglutide (weight loss) 0.25 0.25 mg (0.5 mL) subcut QWEEK 4 01/08/24 mg/0.5 mL subcutaneous pen weeks #2 mL injector (Ranjeet) omeprazole 20 mg capsule,delayed 20 mg PO DAILY PRN he artburn 90 02/11/24 release days #90 caps prednisone 20 mg tablet 60 mg (3 x 20 mg) PO DAILY 7 days 03/21/25 #21 tabs Allergies Allergy/AdvReac Type Severity Reaction Status Date / Time fluconazole (From DIFLUCAN) Allergy Mild RASH Verified 03/21/25 18:36 codeine (CODEINE) Allergy Unknown migriane Verified 03/21/25 18:36 PMFSH Past Medical History Medical History Left hand pain Low back pain Right elbow pain Neck pain Malignant lymphoma, non-Hodgkin's Breast cancer Surgical History History of colonoscopy History of mammogram History of left salpingo-oophorectomy History of right salpingo-oophorectomy History of left breast biopsy History of section Family History Family History Father Stroke FH: testicular cancer Mother Hypertension Asthma Maternal Grandmother Leukemia Social History Social History Household Members: Family Housing: Apartment Alcohol intake: current Alcohol intake frequency: holidays/special occasions only Alcohol type: wine and hard liquor Patient Tobacco Use Status: Former Tobacco user Tobacco use type: Cigarette Smoked in Last 30 Days: No e-Cigarette/Vaping Use: Never Used Second Hand Smoke Exposure: No Use of substances other than those prescribed or required for medical reasons: Yes Substance Use Type: Marijuana Advance Directives: No Advance Directives Information Provided: No service: No Current occupational status: employed Current occupational exposures/hazards: No Cognitive needs: No Hearing needs: No Vision needs: No Physical Exam ED Vital Signs: Vital Signs - 24 hr 03/21/25 18:33 Temperature 97.6 F Pulse Rate 88 Respiratory Rate 16 Blood Pressure 158/103 H Pulse Oximetry 100 Oxygen Delivery Method Room Air BMI result Body Mass Index 35.2 Course Course Course Narrative: This is a rapid medical exam performed by Daphne Brasher NP: Additional HPI, ROS, PE not included below will be deferred to primary provider. Patient is a 54- year old female presenting with complaint of right sided facial droop since this morning, no forehead involvement. States she noticed first when coffee began dripping from mouth at work. Woke at 4am, went to bed at 9pm. Plan: stroke alert activated Medications Administered Discontinued Medications Generic Name Dose Route Start Last Admin Trade Name Freq PRN Reason Stop Dose Admin Iohexol 100 ml 03/21/25 18:57 03/21/25 18:57 Iohexol 350 Mg/Ml 100 Ml Infus..Btl IV 03/21/25 18:58 70 ml ONCE ONE Administration Medical Decision Making Lab Data Labs: Lab Results 03/21/25 Range/Units 19:07 Whole Blood PT 12.4 (11.1-13.5) sec Whole Blood INR 1.0 (0.9-1.1) POC Glucose 88 (60-115) mg/dL Discharge Plan Discharge Clinical Impression: Esquivel's palsy Patient Disposition: Home, Self-Care Prescriptions: New prednisone 20 mg tablet 60 mg PO DAILY 7 Days Qty: 21 0RF No Action omeprazole 20 mg capsule,delayed release(DR/EC) 20 mg PO DAILY PRN (Reason: heartburn) 90 Days Qty: 90 0RF (DME) compression stockings 30 mm/hg See Rx Instructions .Route .MEDSUPPLY Qty: 1 3RF Rx Instructions: As directed Wegovy 0.25 mg/0.5 mL pen injector 0.25 mg subcut QWEEK 28 Days Qty: 2 0RF Rx Instructions: administer weeks 1 through 4 of therapy Referrals: Mariella Quintero MD [Primary Care Provider, Internal Medicine] - 03/24/25 Print Language: Barbadian
--- NOTE | 2025-03-21 18:37 | ECG_ITS ---
Test Reason : STROKE Blood Pressure : */* mmHG Vent. Rate : 79 BPM Atrial Rate : 79 BPM P-R Int : 140 ms QRS Dur : 86 ms QT Int : 380 ms P-R-T Axes : * 2 -3 degrees QTcB Int : 435 ms Normal sinus rhythm Normal ECG When compared with ECG of 15-Feb-2014 22:06, Nonspecific T wave abnormality now evident in Inferior leads Referred By: Joselin Brasher Electronically Signed By: BRANDEN JOHNSON
--- NOTE | 2025-03-21 18:50 | ED_ITS ---
HPI - Neuro Symptoms/Deficit General Chief Complaint: Neuro Symptoms/Deficit Stated Complaint: right side face numbness Time Seen by Provider: 03/21/25 18:49 History of Present Illness HPI Narrative: Patient is a 54-year-old female with no significant cardiac risk factor presented today with waking up this morning noticing her right side of the face being drooped. Patient from home. There is no change in her voice. There is some watery eyes. There is no change in vision. There is no change in her coordination she was in fact able to go to her job and worked all day. No difficulty ambulating no difficulty with coordination of her hands. Sent in for further evaluation. Related Data Previous Rx's ?Medication ?Instructions ?Recorded compression stockings #1 ea 01/02/23 semaglutide (weight loss) 0.25 0.25 mg (0.5 mL) subcut QWEEK 4 01/08/24 mg/0.5 mL subcutaneous pen weeks #2 mL injector ([employer]well SystemsvPhotocollect) omeprazole 20 mg capsule,delayed 20 mg PO DAILY PRN he artburn 90 02/11/24 release days #90 caps prednisone 20 mg tablet 60 mg (3 x 20 mg) PO DAILY 7 days 03/21/25 #21 tabs Allergies Allergy/AdvReac Type Severity Reaction Status Date / Time fluconazole (From DIFLUCAN) Allergy Mild RASH Verified 03/21/25 18:36 codeine (CODEINE) Allergy Unknown migriane Verified 03/21/25 18:36 Review of Systems Review of Systems: No fever no chills no chest pain or shortness breath no difficulty breathing no change in her voice. Yes all other systems are reviewed and are negative [facility] Past Medical History Attestation statement: The following information was validated with the patient. Medical History Left hand pain Low back pain Right elbow pain Neck pain Malignant lymphoma, non-Hodgkin's Breast cancer Surgical History History of colonoscopy History of mammogram History of left salpingo-oophorectomy History of right salpingo-oophorectomy History of left breast biopsy History of section Family History Family History Father Stroke FH: testicular cancer Mother Hypertension Asthma Maternal Grandmother Leukemia Social History Social History Household Members: Family Housing: Apartment Alcohol intake: current Alcohol intake frequency: holidays/special occasions only Alcohol type: wine and hard liquor Patient Tobacco Use Status: Former Tobacco user Tobacco use type: Cigarette Smoked in Last 30 Days: No e-Cigarette/Vaping Use: Never Used Second Hand Smoke Exposure: No Use of substances other than those prescribed or required for medical reasons: Yes Substance Use Type: Marijuana Advance Directives: No Advance Directives Information Provided: No service: No Current occupational status: employed Current occupational exposures/hazards: No Cognitive needs: No Hearing needs: No Vision needs: No Physical Exam Exam: Exam: Appearance: Alert. Oriented X3. No acute distress. Eyes: Pupils equal, round and reactive to light. ENT: Pharynx normal. Neck: Normal inspection. Neck supple. No lymph nodes noted. No crepitus CVS: Normal heart rate and rhythm. Pulses normal. Normal S1 and S2 Respiratory: No respiratory distress. Breath sounds normal. No Wheezing. No rales Abdomen: Soft and nontender. No rigidity. No distention. good BS x4 Skin: Skin warm and dry. Normal skin color. Normal skin turgor. Extremities: No lower extremity edema. Neurovascular intact to all extremities. No Lacerations. No Rash Neuro: Oriented X 3. Positive right face paralysis. Both the forehead and the eyelids are affected. The smiles affected. No sensory deficit. Moving all extermities. No slurred speech. Ambulate with normal gait. Vital Signs: Vital Signs: Last Vital Signs Temp 97.6 F 03/21/25 18:33 Pulse 88 03/21/25 18:33 Resp 16 03/21/25 18:33 BP 158/103 H 03/21/25 18:33 Pulse Ox 100 03/21/25 18:33 O2 Del Method Room Air 03/21/25 18:33 BMI result Body Mass Index 35.2 Medications Administered Discontinued Medications Generic Name Dose Route Start Last Admin Trade Name Freq PRN Reason Stop Dose Admin Iohexol 100 ml 03/21/25 18:57 03/21/25 18:57 Iohexol 350 Mg/Ml 100 Ml Infus..Btl IV 03/21/25 18:58 70 ml ONCE ONE Administration Medical Decision Making Medical Decision Making [facility] Narrative: Patient's sugar is normal. 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 Nevertheless patient already in CAT scanner getting a CT head and CTA angio. It is being done at this point. No distress. NIH stroke scale is 1 basically have some facial paralysis noted. In stable condition Lyme was ordered. In no distress. Patient's symptoms more consistent with Esquivel's palsy. Symptoms started today. Patient denies any change in voice there is no extremity weakness or changes in coordination. Speech is normal. Patient is has weakness over the entire right side of the face. Lyme was sent. Patient's glucose is normal. No acute distress. Will discharge patient home. Will start patient on steroid. In stable condition. Differential Diagnosis Differential Diagnoses: The differential diagnosis associated with the presentation includes Hypoglycemia, stroke, Lyme, Esquivel's palsy Admission/Observation Consideration of admission/observation: Escalation of care including admission/observation considered Lab Data [facility] Lab Attestation statement: I reviewed the patient's lab results. Labs: Lab Results 03/21/25 Range/Units 19:07 Whole Blood PT 12.4 (11.1-13.5) sec Whole Blood INR 1.0 (0.9-1.1) POC Glucose 88 (60-115) mg/dL Independent Interpretation I performed an independent interpretation of an: CT Scan (CT head was grossly negative) Radiology Impression Discussion of test interpretation with radiology: I discussed test interpretation with the radiologist and I have reviewed the radiologist's reading. External Record Review External record reviewed: Office record Chronic Conditions Previous history of cancer Social Determinants Patient?s care significantly limited by Social Determinants of Health including: Problems related to primary support group NIH Stroke Scale Internal: Initial- Upon Arrival Time: 18:52 Level of Consciousness: Alert Level of Consciousness Questions: Answers both questions correctly Level of Consciousness Commands: Performs both tasks correctly Best Gaze: Normal Visual: No visual loss Facial Palsy: Minor paralyis Motor Arm (Right): No drift Motor Arm (Left): No drift Motor Leg (Right): No drift Motor Leg (Left): No drift Limb Ataxia: Absent Sensory: Normal Best Language: No aphasia Dysarthia: Normal Extinction and Inattention: No abnormality Score: 1 Discharge Plan Discharge Clinical Impression: Esquivel's palsy Patient Disposition: Home, Self-Care Prescriptions: New prednisone 20 mg tablet 60 mg PO DAILY 7 Days Qty: 21 0RF No Action omeprazole 20 mg capsule,delayed release(DR/EC) 20 mg PO DAILY PRN (Reason: heartburn) 90 Days Qty: 90 0RF (DME) compression stockings 30 mm/hg See Rx Instructions .Route .MEDSUPPLY Qty: 1 3RF Rx Instructions: As directed Wegovy 0.25 mg/0.5 mL pen injector 0.25 mg subcut QWEEK 28 Days Qty: 2 0RF Rx Instructions: administer weeks 1 through 4 of therapy Referrals: Mariella Quintero MD [Primary Care Provider, Internal Medicine] - 03/24/25 Print Language: Beninese
[2025-03-21] MEDS: iohexoL 350 MG/ML 100 ML INFUS..BTL IV (18:57)
[2025-03-21 19:11] LABS: Prothrombin Time Whole Bld POC 12.4 sec (11.1-13.5); ~PT, ~INR - Anti Coag Clinic 1.0 (0.9-1.1)
[2025-03-21 19:12] LABS: Glucose, Whole Blood 88 mg/dL (60-115)
--- NOTE | 2025-03-21 19:23 | MHC.EVENTN ---
Did pt POC. POC was 88 let William the nurse be aware. Did the Pts EKG and gave to MD Kumar. Also did the INR. It was 1.0 let MD Kumar be aware
[2025-03-21 20:29] LABS: MANUAL DIFF FLAG NO
[2025-03-21 20:35] LABS: Hematocrit 39.3 % (37.0-47.0); Hemoglobin 13.4 g/dl (12.0-16.0); Imm Gran Abs Auto 0.07 X10*3/uL (0.00-0.03); Imm Gran Pct Auto 0.5 % (0.0-0.4); Lymphocytes Absolute Auto 3.9 X10*3/uL (1.2-4.9); Mean Corpuscular HGB Conc 34.1 g/dl (31.0-35.0); Mean Corpuscular Hemoglobin 28.6 pg (27.0-33.0); Mean Corpuscular Volume 84.0 fL (80.0-98.0); NRBC Abs Auto 0.000 X10*3/uL (0.0-0.012); NRBC Pct Auto 0.0 /100WBC (0.0-0.2); Platelet Count 339 X10*3/uL (160-400); Red Blood Count 4.68 X10*6/uL (4.20-5.50); White Blood Count 14.6 X10*3/uL (4.8-10.8)
[2025-03-21 20:44] LABS: Anion Gap 13 (12-20); Blood Urea Nitrogen 11 mg/dL (9-16); Calcium 9.9 mg/dL (8.4-10.2); Carbon Dioxide 27 mmol/L (22-29); Chloride 103 mmol/L (96-108); Cholesterol 195 mg/dL (<200); Creatinine Clr Calc Pharmacy 104.0; Estimated Glomerular Filt Rate > 60; HDL Cholesterol 54 mg/dL (>40); Potassium 4.0 mmol/L (3.3-5.1); Sodium 139 mmol/L (135-145); Triglycerides 147 mg/dL (<150)
[2025-03-21 20:45] LABS: INTERNATIONAL NORM RATIO 0.9 (0.9-1.1); Prothrombin Time 10.6 SEC (10.9-12.4)
[2025-03-21 20:47] LABS: Partial Thromboplastin Time 29.4 SEC (26.7-34.1)
[2025-03-21 20:51] LABS: Stroke Lab Use COMPLETE
[2025-03-21 20:54] LABS: Troponin-I High Sensitivity < 2.7 ng/L (<3.5-17.0)
[2025-03-21 21:15] VITALS: BP 145/94; PULSE 80; RESP 16; TEMP 36.7; O2SAT 99
[2025-03-25 06:03] LABS: Lyme Abs Screen <0.90 index
== END 2025-03-21 21:16 | disposition home or self-care (01) ==
PROVIDERS: Registered Nurse Emergency; Emergency Provider Emergency Medicine Emergency Medical Services; PCP Internal Medicine
DX: G51.0 Bell's palsy (principal); R20.0 Anesthesia of skin; R29.701 NIHSS score 1; Z87.891 Personal history of nicotine dependence; Z79.899 Other long term (current) drug therapy
CPT/HCPCS: 36415; 70450; 70496; 70498; 80048; 80061; 82947; 84484; 85025; 85610; 85730; 86617; 86618; 93005; 99284; Q9967

== ENCOUNTER → 2025-03-21 18:37 | Outpatient (BNV) | payer OTHER, SELFPAY | PROVIDERS: Emergency Provider Emergency Medicine Emergency Medical Services; PCP Internal Medicine; Visit Provider Radiology Diagnostic Radiology | DX: G51.0 Bell's palsy (principal); R20.2 Paresthesia of skin | CPT/HCPCS: 70450; 70496; 70498 ==

== ENCOUNTER → 2025-03-21 18:37 | Outpatient (BNV) | payer OTHER, SELFPAY | PROVIDERS: Emergency Provider Emergency Medicine Emergency Medical Services; PCP Internal Medicine; Visit Provider Internal Medicine | DX: I63.9 Cerebral infarction, unspecified (principal) | CPT/HCPCS: 93010 ==

== ENCOUNTER 2025-03-24 16:57 | Outpatient (AMB) | payer OTHER, SELFPAY ==
[2025-03-24 17:05] VITALS: BP 138/78; PULSE 78; O2SAT 99; BMI 35.5
--- NOTE | 2025-03-24 17:05 | MHC.PC.OV ---
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 Automatic Required: No Accompanied by: Self / Same As Patient Allergies fluconazole (From DIFLUCAN) Allergy (Mild, Verified 03/24/25 17:11) RASH codeine (CODEINE) Allergy (Unknown, Verified 03/24/25 17:11) migriane Medication List - Last Reconciled 03/24/25 by Mariella Morel MD [compression stockings As directed] omeprazole 20 mg PO DAILY PRN 90 days prednisone 60 mg (3 x 20 mg) PO DAILY 7 days semaglutide (weight loss) (Wegovy) 0.25 mg (0.5 mL) subcut QWEEK 4 weeks Tobacco use date assessed: 03/24/25 Dental Screening Dental Screen Date: 03/24/25 Did you have a dental visit in the last 12 months?: Yes Did you have a dental problem in the last 6 months where you did not have access to dental care?: No Was dental information given to patient?: Patient has dentist HPI HPI Comments History of Present Illness Details This is a 54-year-old female with chronic GERD and Hodgkin's lymphoma that comes today as hospital discharge follow-up due to Esquivel's palsy that develop 03/21/2025. She denied any hemiparesis and has normal gait and speech. Was given prednisone which she is currently taking. Able to close the eye. GERD stable with PPIs. In remission for her Hodgkin's lymphoma. She had CT scan of the head and neck while at ER which showed a 6 mm left thyroid nodule. Ultrasound of the thyroid and thyroid function test will be ordered. [facility] Medical History (Updated 03/24/25 @ 17:21 by Mariella Morel MD) Left hand pain Low back pain Right elbow pain Neck pain Malignant lymphoma, non-Hodgkin's Breast cancer Surgical History History of colonoscopy History of mammogram History of left salpingo-oophorectomy History of right salpingo-oophorectomy History of left breast biopsy History of section Family History Father Stroke FH: testicular cancer Mother Hypertension Asthma Maternal Grandmother Leukemia Social History Household Members: Family Housing: Apartment Alcohol intake: current Alcohol intake frequency: holidays/special occasions only Alcohol type: wine and hard liquor Patient Tobacco Use Status: Former Tobacco user Tobacco use type: Cigarette e-Cigarette/Vaping Use: Never Used Second Hand Smoke Exposure: No Substance Use Type: Marijuana service: No Current occupational status: employed Current occupational exposures/hazards: No Cognitive needs: No Hearing needs: No Vision needs: No Questionnaire PHQ-9 Over the last 2 weeks, how often have you been bothered by any of the following problems? 1. Little interest or pleasure in doing things: not at all 2. Feeling down, depressed, or hopeless: not at all 3. Trouble falling or staying asleep, or sleeping too much: not at all 4. Feeling tired or having little energy: not at all 5. Poor appetite or overeating: not at all 6. Feeling bad about yourself - or that you are a failure or have let yourself or your family down: not at all 7. Trouble concentrating on things, such as reading the newspaper or watching television: not at all 8. Moving or speaking so slowly that other people could have noticed. Or the opposite - being so fidgety or restless that you have been moving around a lot more than usual: not at all 9. Thoughts that you would be better off or of hurting yourself in some way: not at all Total score: 0 Depression Screening Interpretation: Negative Depression Screening Done: Yes 35627 - PHQ-9 Billing: Yes Source: Developed by Drs. Reinier Conley, Laure Curry, Gume Power and colleagues, with an educational jose from [employer]. Thrive Questionnaire Date Thrive assessed: 03/24/25 I am a: Patient What is your living situation today?: I have a steady place to live Within the past 12 months, did the food you bought not last and you didn't have the money to get more?: Never true Within the past 12 months, did you worry whether your food would run out before you got money to buy more?: Never true Do you have trouble paying for medicines?: No Do you have trouble getting transportation to medical appointments?: No Do you have trouble paying your heating and electricity bill?: No Do you have trouble taking care of your child, family member or friend?: No Do you have trouble with day-to-day activities such as bathing, preparing meals, shopping, managing finances, etc.?: No Are you currently unemployed and looking for a job?: No Are you interested in more education?: No Please select the resources that you would like help with: None Currently or been in a relationship where the following occur: No concerns reported THRIVE Score: 0 AUDIT C Alcohol Use Questionnaire (AUDIT-C) 1. How often do you have a drink containing alcohol?: Monthly or less 2. How many drinks containing alcohol do you have on a typical day when you are drinking?: 1 or 2 3. How often do you have six or more drinks on one occasion?: Never Total Score: 1 LUPE-7 AMB Questionnaire LUPE-7 Date LUPE - 7 assessed: 03/24/25 Feeling nervous, anxious, or on edge: 0 = Not at all Not being able to stop or control worryin = Not at all Worrying too much about different things: 1 = Several days Trouble relaxin = Not at all Being so restless that it is hard to sit still: 0 = Not at all Becoming easily annoyed or irritable: 1 = Several days Feeling afraid as if something awful might happen: 0 = Not at all Total LUPE-7 score (0-4 normal; 5-9 mild; 10-14 moderate; 15-21 severe): 2 Source: Developed by Drs. Reinier Conley, Laure Curry, Gume Power and colleagues, with an educational jose from [employer]. Review of Systems Const All systems reviewed & are unremarkable except as noted in HPI and below Card Denies chest pain at rest, Denies chest pain with activity, Denies edema, Denies irregular heart rhythm, Denies claudication, Denies dyspnea, Denies dyspnea on exertion, Denies orthopnea, Denies paroxysmal nocturnal dyspnea and Denies slow heart rate Resp Denies cough, Denies dyspnea and Denies dyspnea on exertion Denies urinary incontinence, Denies urinary hesitancy and Denies urinary urgency Musc Denies atrophy, Denies deformity and Denies limited range of motion Physical exam (Primary Care) Vital Signs: Last Vital Signs Pulse 78 03/24/25 17:05 BP 138/78 03/24/25 17:05 Pulse Ox 99 03/24/25 17:05 Oxygen Delivery Method Room Air 03/24/25 17:05 BMI result Body Mass Index 35.5 BMI Assessment/Plan discussion: High BMI High, discussed plan: lifestyle, weight reduction, dietary and physical activity Tobacco/Smoking Status: Tobacco use Status Tobacco use date assessed 03/24/25 03/24/25 17:08 Patient Tobacco Use Status Former Tobacco user 03/24/25 17:08 Tobacco use type Cigarette 03/24/25 17:08 e-Cigarette/Vaping Use Never Used 03/24/25 17:08 PHQ-9: PHQ-9 Score PHQ-9: Total score 0 03/24/25 17:08 Depression Screening Interpretation: Negative Thrive Assessment: Date of Thrive Assessment Date Thrive assessed 03/24/25 03/24/25 17:08 Currently or been in a relationship where the following occur: No concerns reported Resp Effort & Inspection: normal respiratory effort Auscultation: clear to auscultation bilaterally Cardio Jugular venous distension: no JVD Rate: regular rate Rhythm: regular rhythm Heart sounds: S1 normal heart sound present and S2 normal heart sound present Extrem General: Yes full ROM Coding Level of Care Code Est Pt Level 4 (09189) Complex EM visit Add On G2211 Diagnoses Esquivel's palsy G51.0 Chronic GERD K21.9 Hodgkin lymphoma, unspecified Hodgkin lymphoma type, unspecified body region C81.90 Hodgkin lymphoma type: unspecified type Lymphoma site: unspecified region Thyroid nodule E04.1 Additional Codes PHQ-9 - 63510 - PHQ-9 Billing: Yes ([id number]) Time Spent (min) 22 Assessment & Plan Assessment & Plan (1) Esquivel's palsy: Code(s): G51.0 - Esquivel's palsy Category: Medical (2) Chronic GERD: Code(s): K21.9 - Gastro-esophageal reflux disease without esophagitis Category: Medical (3) Hodgkin lymphoma: Code(s): C81.90 - Hodgkin lymphoma, unspecified, unspecified site Category: Medical Qualifiers: Hodgkin lymphoma type: unspecified type Lymphoma site: unspecified region Qualified Code(s): C81.90 - Hodgkin lymphoma, unspecified, unspecified site (4) Thyroid nodule: Code(s): E04.1 - Nontoxic single thyroid nodule Category: Medical Plan For Esquivel's palsy complete prednisone. Continue PPIs as needed for GERD. Ultrasound and thyroid function test order for thyroid nodule. Follow-up with oncology as needed for Hodgkin lymphoma. Medications: Refilled omeprazole 20 mg PO DAILY PRN 90 caps 0RF heartburn 90 days
--- OUTSIDE RECORDS SUMMARY | 2025-03-24 18:36 | XMS_ITS | Patient Health Record ---
Author Organization [facility] Address [address] [place] [address] Care Team Providers Care Certified Meeting Professional Name Role Phone Mariella Quintero Primary Care Provider Unavailab Ariel Wallace Jr Unavailable Dulala Marley Unavailable Unavailable Allergies Allergen (clinical drug ingredient) Drug/Non Drug Allergy documented on EMR Reaction Allergy Type Onset Date Status Tylenol/Codeine #3 Unknown Drug Allergy Active Reason For Referral No Information Medications Medication SIG (Take, Route, Fr equency, Duration) Notes Start Date End Date Status Omeprazole 20 MG 1 capsule Orally Once a day Active Omeprazole 20 MG 1 capsule Orally Twi ce a day for 14 days 04/26/2017 Active Amoxicillin 500 MG 2 tablets Orally milena ry 12 hrs for 14 days 04/26/2017 Active Biaxin 500 MG 1 tablet Orally ever y 12 hrs for 14 days 04/26/2017 Active Meloxicam 15 MG 1 tablet Orally Once a day Active Tamoxifen Citrate 20 MG 1 tablet Orally Once a day Active Warfarin Sodium 5 MG 1 tablet Orally Once a day Active Social History Tobacco Use: Social History Observation Description Date Details (start date - stop date) Former Smoker NA - NA Tobacco Use/Smoking Question Answer Notes Patient is a former smoker How long has it been since you last smoked? 1-5 years Alcohol Screen Question Answer Notes Did you have a drink contain ing alcohol in the past year? Yes How often did you have a dri nk containing alcohol in the past year? Monthly or less (1 point) How many drinks did you have on a typical day when you were drinking in the past year? 1 or 2 drinks (0 point) How often did you have 6 or more drinks on one occasion in the past year? Never (0 point) Points 1 Interpretation Negative Problems Problem Type SNOMED Code ICD Code Onset Dates Problem Status W/U Status Risk Notes Problem [id number] Abnormal finding s on diagnostic imaging of other parts of digestive tract (R93.3) Active confirmed Problem [id number] Gastroesophageal reflux disease without esophagitis (K21.9) Active confirmed Plan Of Treatment Future Test Test Name Order Date UPPER GI ENDOSCOPY 12/01/2016 Insurance Providers Payer Name Payer Address Payer Phone Subscriber Number Group Number Insured Name Patient Relationship to Insured Coverage Start Date Coverage End Date [facility] [address] [address] [place], [place] [id number] MERI CESAR Self - patient is the insured Medical (General) History Medical History History ICD Code stage II Hodgkin lymphoma. 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
== END 2025-03-24 17:25 | disposition home or self-care (01) ==
LOC: HO.HMCH 16:57
PROVIDERS: PCP Internal Medicine; Visit Provider Internal Medicine
DX: G51.0 Bell's palsy (principal); K21.9 Gastro-esophageal reflux disease without esophagitis; C81.90 Hodgkin lymphoma, unspecified, unspecified site; E04.1 Nontoxic single thyroid nodule

== ENCOUNTER → 2025-03-24 16:57 | Outpatient (BNVA) | payer OTHER, SELFPAY | PROVIDERS: PCP Internal Medicine; Visit Provider Internal Medicine | DX: K21.9 Gastro-esophageal reflux disease without esophagitis (principal); C81.90 Hodgkin lymphoma, unspecified, unspecified site; G51.0 Bell's palsy; E04.1 Nontoxic single thyroid nodule | CPT/HCPCS: 96127; 99212 ==

== ENCOUNTER 2025-03-28 06:38 | Outpatient (REF) | payer OTHER, SELFPAY ==
[2025-03-28 08:02] LABS: Thyroid Stimulating Hormone 2.05 uIU/mL (0.32-4.0)
[2025-03-31 18:52] LABS: Thyroglobulin Antibodies <1 IU/mL (< or = 1)
== END 2025-03-28 06:39 | disposition home or self-care (01) ==
LOC: HO.LAB 06:38
PROVIDERS: PCP Internal Medicine; Visit Provider Internal Medicine
DX: E04.1 Nontoxic single thyroid nodule (principal)
CPT/HCPCS: 36415; 82670; 82681; 84443; 86376; 86800

== ENCOUNTER 2025-05-02 12:53 | Day surgery (SDC) | payer OTHER, SELFPAY ==
--- OUTSIDE RECORDS SUMMARY | 2025-04-08 16:13 | XMS_ITS | Patient Health Record ---
Author Organization [facility] Address [address] [place] [address] Care Team Providers Care Grocery Carrier Name Role Phone Mariella Quintero Primary Care [...] MG 1 capsule Orally Twi ce a day; Duration: 14 days 04/26/2017 Active Amoxicillin 500 MG 2 tablets Orally milena ry 12 hrs; Duration: 14 days 04/26/2017 Active Biaxin 500 MG 1 tablet Orally ever y 12 hrs; Duration: 14 days 04/26/2017 Active Meloxicam 15 MG [...] Problem Status W/U Status Risk Notes Problem Imaging of gastrointestinal tract abnormal ([id number]) Abnormal findings on diagnostic imaging of other parts of digestive tract (R93.3) Active confirmed Problem Gastroesophageal reflux disease without esophagitis ([id number]) Gastroesophageal reflux disease without esophagitis (K21.9) Active confirmed Plan Of Treatment Future Test Test Name Order Date UPPER GI ENDOSCOPY 12/01/2016 Insurance Providers Payer Name Payer Address Payer Phone Subscriber Number Group Number Insured Name Patient Relationship to Insured Coverage Start Date Coverage End Date [facility] [address] [address] [place], [place] [id number] MERI CESAR Self - patient is the insured Medical (General) History Medical History History ICD Code stage II Hodgkin lymphoma. 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
--- NOTE | 2025-04-29 12:27 | P.CONAN_ITS ---
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 per PCP f/u visit hx non-hodgkins lymphoma - in remission Anesthesia Pre-Procedure Meds Is the patient on any of the following meds?: GLP1/DPP4 PMFSH Active Problems Active Problems: All Active Problems Esquivel's palsy (Acute) Thyroid nodule (Acute) Chronic GERD (Acute) Obesity (BMI 35.0-39.9 without comorbidity) (Acute) Hand paresthesia (Acute) Physical exam (Acute) Leg edema (Acute) Class 1 obesity with body mass index (BMI) of 32.0 to 32.9 in adult (Acute) Left hand pain (Acute) Low back pain (Acute) Right elbow pain (Acute) Neck pain (Acute) Past Medical History Medical History (Updated 05/02/25 @ 13:42 by Genesis Zayas RN) Hx of Esquivel's palsy Left hand pain Low back pain Right elbow pain Neck pain Malignant lymphoma, non-Hodgkin's Breast cancer Family History Family History Father Stroke FH: testicular cancer Mother Hypertension Asthma Maternal Grandmother Leukemia Surgical History Surgical History History of colonoscopy History of mammogram History of left salpingo-oophorectomy History of right salpingo-oophorectomy History of left breast biopsy History of section Social History Social History Household Members: Family Housing: Apartment Alcohol intake: current Alcohol intake frequency: holidays/special occasions only Alcohol type: wine and hard liquor Patient Tobacco Use Status: Former Tobacco user Tobacco use type: Cigarette e-Cigarette/Vaping Use: Never Used Second Hand Smoke Exposure: No Use of substances other than those prescribed or required for medical reasons: Yes Substance Use Type: Marijuana Substance Use Type Other:: couple times a yr--ld 1 1/2 wks ago Substance Use Frequency: Occasionally Are you DNR?: No Advance Directives: No Advance Directives Information Provided: Yes service: No Current occupational status: employed Current occupational exposures/hazards: No Cognitive needs: No Hearing needs: No Vision needs: No Meds Allergies Allergy/AdvReac Type Severity Reaction Status Date / Time fluconazole (From DIFLUCAN) Allergy Mild RASH Verified 05/02/25 13:41 codeine (CODEINE) Allergy Unknown migriane Verified 05/02/25 13:41 Exam Pertinent Lab Results Pertinent Lab Results: Laboratory Tests 03/21/25 20:23 WBC 14.6 H Hgb 13.4 Hct 39.3 Plt Count 339 Sodium 139 Potassium 4.0 Chloride 103 Carbon Dioxide 27 BUN 11 Creatinine 0.61 Narrative Narrative: EKG 03/2025 Vent. Rate : 79 BPM Atrial Rate : 79 BPM P-R Int : 140 ms QRS Dur : 86 ms QT Int : 380 ms P-R-T Axes : * 2 -3 degrees QTcB Int : 435 ms Normal sinus rhythm Normal ECG When compared with ECG of 15-Feb-2014 22:06, Nonspecific T wave abnormality now evident in Inferior leads Assessment and Plan Assessment Anesthesia Assessment: Chart Reviewed Documented by User: Namrata Martinez MD 05/02/25 16:23 [facility] Past Medical History Medical History (Updated 05/02/25 @ 13:42 by Genesis Zayas, RN) Hx of Esquivel's palsy Left hand pain Low back pain Right elbow pain Neck pain Malignant lymphoma, non-Hodgkin's Breast cancer Family History Family History Father Stroke FH: testicular cancer Mother Hypertension Asthma Maternal Grandmother Leukemia Family history of problems with anesthesia: No Surgical History Surgical History History of colonoscopy History of mammogram History of left salpingo-oophorectomy History of right salpingo-oophorectomy History of left breast biopsy History of section History of Problems with Anesthesia: No Social History Social History Household Members: Family Housing: Apartment Alcohol intake: current Alcohol intake frequency: holidays/special occasions only Alcohol type: wine and hard liquor Patient Tobacco Use Status: Former Tobacco user Tobacco use type: Cigarette e-Cigarette/Vaping Use: Never Used Second Hand Smoke Exposure: No Use of substances other than those prescribed or required for medical reasons: Yes Substance Use Type: Marijuana Substance Use Type Other:: couple times a yr--ld 1 1/2 wks ago Substance Use Frequency: Occasionally Are you DNR?: No Advance Directives: No Advance Directives Information Provided: Yes service: No Current occupational status: employed Current occupational exposures/hazards: No Cognitive needs: No Hearing needs: No Vision needs: No Meds Allergies Allergy/AdvReac Type Severity Reaction Status Date / Time fluconazole (From DIFLUCAN) Allergy Mild RASH Verified 05/02/25 13:41 codeine (CODEINE) Allergy Unknown migriane Verified 05/02/25 13:41 Exam Airway Mallampati Class: II TM Dist: >3cm Neck ROM: Full Heart: rrr Lungs: cta Assessment and Plan Assessment Anesthesia Assessment: Anesthesia Plan Discussed Final Anesthetic Review Family History of Problems with Anesthesia: No History of Problems with Anesthesia: No NPO: Yes ASA Class: II Final Preanesthetic Review: No Changes in Pt Med Stat, Meds/Allgs Chart Reviewed and Consent Obtained/Reviewed Patient Risk: Low Procedure Risk: Low Anesthetic Plan Anesthetic Plan: MAC: Disposition: Standard PACU
[2025-04-30 14:54] VITALS: BMI 35.5
[2025-05-02 13:43] VITALS: BP 137/77; PULSE 83; RESP 16; TEMP 36.7; O2SAT 99; BMI 34.5
[2025-05-02] MEDS: Lactated Ringers 1,000 ML 100 ML IVCONT (13:57)
--- NOTE | 2025-05-02 15:00 | P.HPSUR_ITS ---
Pre-Procedural Eval Section A - 24 Hr Update-Section A only Date of Service: 05/02/25 The patient is an INPATIENT: No The patient has been examined within 24 hours of the surgical procedure. The History & Physical has been completed within 30 days and I have reviewed it.: No Section B - Complete if H&P > 30 days Chief Complaint: Surveillance for colon polyps Relevant Family History (Specify if Yes): No Relevant Social History: Tobacco Use (Former smoker) Present Medications: see Short Stay Collaborative assessment Medical History: Significant History (Low back pain Right elbow pain Neck pain Malignant lymphoma, non-Hodgkin's Breast cancer) History of Previous Operations: Relevant previous surgery/procedure and date(s) (History of colonoscopy History of mammogram History of left salpingo- oophorectomy History of right salpingo-oophorectomy History of left breast biopsy History of section) Allergies: Allergies Allergy/AdvReac Type Severity Reaction Status Date / Time fluconazole (From DIFLUCAN) Allergy Mild RASH Verified 05/02/25 13:41 codeine (CODEINE) Allergy Unknown migriane Verified 05/02/25 13:41 Review of Systems Sugical H&P ROS: Negative: Constitution, Cardiovascular, Respiratory and Gastrointestinal Exam Surgical H&P Exam: Normal: Heart, Normal: Lungs, Normal: Extremities and Normal: Abdomen Plan Diagnosis/Plan: Change (Proceed with open access colonoscopy) I have reviewed the history and physical and performed a pertinent physical examination on my patient. No changes have occurred unless specified. Time Spent With Patient Time: Total time managing care of this patient today ____ minutes.
--- NOTE | 2025-05-02 17:05 | HO.OPN-COLON ---
Colonoscopy Operative Note Operative Note Date of Service: 05/02/25 Narrative: COLONOSCOPY TILL CECUM WITH BIOPSIES AND SNARE POLYPECTOMY Pre-op diagnosis: Surveillance for colon polyps (direct access colonoscopy) Post-op diagnosis:? Colon polyps, Diverticulosis, hemorrhoids ? Endoscopist:? Neo Dumont MD Anesthesia:?MAC Consent: Indications for the procedure and potential complications of bleeding, perforation, reaction to medications and missed diagnosis were discussed with the patient and informed consent was obtained. Instrument: Olympus PCF H 190 L variable stiffness pediatric colonoscope Monitoring: Vital signs and clinical assessment, intermittent blood pressure monitoring, continuous EKG monitoring, Pulse oximetry and Carbon Dioxide monitoring were done throughout the procedure. Please see anesthesia flowsheet. Colon withdrawl time was 25 minutes. Procedure: The patient was placed in the left lateral decubitis position and pre-procedure medications were administered. After a digital rectal examination of the ano-rectum, the video colonoscope was inserted into the rectum and advanced through the colon to the cecum. The colonoscope was slowly withdrawn in a retrograde panoramic fashion and the colon mucosa was carefully examined including a retroflexed view of the rectum. Findings and interventions are described below. Procedure Difficulty: without difficulty Findings: Terminal Ileum: Not evaluated Cecum: Normal Ascending Colon: A 10-12 mm sessile polyp in the distal ascending colon. Polyp was removed with a cold snare and it was not retrieved Transverse Colon: A 10-12 mm sessile polyp - removed with a hot Descending Colon: Normal Sigmoid Colon: Two 8-10 mm sessile polyps - removed with a cold snare. Moderate diverticulosis Rectum: A few 5-6 mm diminutive appearing polyps - 1 polyp was biopsied Ano-rectum: Moderate internal hemorrhoids Colon preparation: Good after copious irrigation. [place] Bowel Preparation Scale Right colon; 2 Transverse colon: 2 Left colon; 2 (0 = Unprepared colon segment with mucosa not seen due to solid stool that cannot be cleared. 1 = Portion of mucosa of the colon segment seen, but other areas of the colon segment not well seen due to staining, residual stool and/or opaque liquid. 2 = Minor amount of residual staining, small fragments of stool and/or opaque liquid, but mucosa of colon segment seen well. 3 = Entire mucosa of colon segment seen well with no residual staining, small fragments of stool or opaque liquid) Impression and Post Procedure Diagnosis: Colonoscopy Findings: Four small to medium sized polyps were removed A few 5-6 mm diminutive appearing polyps in the rectum - 1 polyp was biopsied Moderate diverticulosis seen in the sigmoid colon Moderate hemorrhoids on retroflexed exam. Plan: I will send a letter with biopsy results. Repeat Colonoscopy in 3-5 years if polyps are adenomatous and 10 year if polyps are hyperplastic. Above findings were reviewed with the patient and relevant handouts were given and the discharge area.
[2025-05-02 17:07] VITALS: BP 123/67; PULSE 90; RESP 16; TEMP 36.7; O2SAT 95
[2025-05-02 17:22] VITALS: BP 127/80; PULSE 79; RESP 16; TEMP 36.8; O2SAT 97
== END 2025-05-02 18:05 | disposition home or self-care (01) ==
PROVIDERS: PCP Internal Medicine; Visit Provider Internal Medicine Gastroenterology
PROC: 0DJD8ZZ Inspection of Lower Intestinal Tract, Via Natural or Artificial Opening Endoscopic (ICD-10-PCS; CPT 45378; principal; 2025-05-02 13:50)
DX: Z12.11 Encounter for screening for malignant neoplasm of colon (principal); Z86.0101 Personal history of adenomatous and serrated colon polyps; D12.3 Benign neoplasm of transverse colon; D12.5 Benign neoplasm of sigmoid colon; K62.1 Rectal polyp; K57.30 Diverticulosis of large intestine without perforation or abscess without bleeding; K64.8 Other hemorrhoids; K21.9 Gastro-esophageal reflux disease without esophagitis; C85.9A Non-Hodgkin lymphoma, unspecified, in remission; G51.0 Bell's palsy; Z85.3 Personal history of malignant neoplasm of breast; E04.1 Nontoxic single thyroid nodule; Z79.85 Long-term (current) use of injectable non-insulin antidiabetic drugs; Z88.5 Allergy status to narcotic agent; Z88.8 Allergy status to other drugs, medicaments and biological substances; Z79.899 Other long term (current) drug therapy; Z98.890 Other specified postprocedural states; Z87.891 Personal history of nicotine dependence
CPT/HCPCS: 45385; 45380; 88305; J2003; J2704; J3010

== ENCOUNTER → 2025-05-02 12:53 | Outpatient (BNV) | payer OTHER, SELFPAY | PROVIDERS: PCP Internal Medicine; Visit Provider Internal Medicine Gastroenterology | DX: Z12.11 Encounter for screening for malignant neoplasm of colon (principal); K63.5 Polyp of colon; K57.30 Diverticulosis of large intestine without perforation or abscess without bleeding; K64.8 Other hemorrhoids | CPT/HCPCS: 45385 ==

== ENCOUNTER 2025-05-07 15:40 | Outpatient (REF) | payer OTHER, SELFPAY ==
--- NOTE | ~2025-05-07 | MM_ITS ---
EXAMINATION: MM SCREENING DIGITAL BREAST TOMOSYNTHESIS, BILATERAL CLINICAL INFORMATION: Screening. Asymptomatic. COMPARISON: Mammography: Comparison is made with available priors TECHNIQUE: Digital breast mammography with tomosynthesis is performed in both the craniocaudal and mediolateral oblique views along with computer-aided detection (CAD). FINDINGS: There are scattered areas of fibroglandular density. Left post lumpectomy changes. There are no significant masses, abnormal calcifications, or other abnormalities. MM/MM tomosynthesis screening BI IMPRESSION: No mammographic evidence of malignancy. ASSESSMENT: BI-RADS Category 2: Benign RECOMMENDATION: Routine annual mammography screening. 1 year F/U This examination should not preclude the clinical evaluation of a suspicious palpable abnormality. This patient's information was entered into a reminder system with a target due date for their next mammogram. Electronically signed by: Nisha Trujillo DO 05/08/2025 10:52 AM [facility]
--- OUTSIDE RECORDS SUMMARY | 2025-05-08 04:15 | XMS_ITS | Patient Health Record ---
Author Organization [facility] Address [address] [place] [address] Care Team Providers Care Carbonation Equipment Operator Name Role Phone Mariella Quintero Primary Care Provider Unavailab Ariel Wallace Jr Unavailable [phone] Marley Cortez Unavailable Unavailable Allergies Allergen (clinical drug ingredient) Drug/Non Drug Allergy documented on EMR Reaction Allergy Type Onset Date Status Tylenol/Codeine #3 Unknown Drug Allergy Active Reason For Referral No Information Medications Medication SIG (Take, Route, Frequency, Duration) Notes Start Date End Date Status Omeprazole 20 MG Capsule Delayed Release 1 capsule Orally Once a day Active Omeprazole 20 MG Capsule Delayed Release 1 capsule Orally Twice a day; Duration: 14 days 04/26/2017 Active Amoxicillin 500 MG Tablet 2 tablets Oral ly every 12 hrs; Duration: 14 days 04/26/2017 Active Biaxin 500 MG Tablet 1 tablet Orally milena ry 12 hrs; Duration: 14 days 04/26/2017 Active Meloxicam 15 MG Tablet 1 tablet Orally O nce a day Active Tamoxifen Citrate 20 MG Tablet 1 tablet Orally Once a day Active Warfarin Sodium 5 MG Tablet 1 tablet Ora lly Once a day Active Social History Tobacco Use: Social History Observation Description Date Details (start date - stop date) Former Smoker NA - NA Social History Drugs/Alcohol: Social Info Question Answer Notes Alcohol Screen Did you have a drink containing alcohol in the past year? Yes How often did you have a drink containing alcohol in the past year? Monthly or less (1 point) How many drinks did you have on a typical day when you were drinking in the past year? 1 or 2 drinks (0 point) How often did you have 6 or more drinks on one occasion in the past year? Never (0 point) Points 1 Interpretation Negative Tobacco Use: Social Info Question Answer Notes Tobacco Use/Smoking Patient is a former smoker How long has it been since you last smoked? 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 Problems Problem Type SNOMED Code ICD Code Onset Dates Problem Status W/U Status Risk Notes Problem Imaging of gastrointestinal tract abnormal (328777546) Abnormal findings on diagnostic imaging of other parts of digestive tract (R93.3) Active confirmed Problem Gastroesophageal reflux disease without esophagitis (722486160) Gastroesophageal reflux disease without esophagitis (K21.9) Active confirmed Plan Of Treatment Future Test Test Name Order Date UPPER GI ENDOSCOPY 12/01/2016 Insurance Providers Payer Name Payer Address Payer Phone Subscriber Number Group Number Insured Name Patient Relationship to Insured Coverage Start Date Coverage End Date [facility] [email or web address] [facility] [address] [address] [place], [place] [phone] [id number] MERI CESAR Self - patient is the insured Medical (General) History Medical History History ICD Code stage II Hodgkin lymphoma. 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
== END 2025-05-07 15:41 | disposition home or self-care (01) ==
LOC: HO.MAMMO 15:40
PROVIDERS: PCP Internal Medicine; Visit Provider Internal Medicine
DX: Z12.31 Encounter for screening mammogram for malignant neoplasm of breast (principal)
CPT/HCPCS: 77063; 77067

== ENCOUNTER → 2025-05-07 16:00 | Outpatient (BNV) | payer OTHER, SELFPAY | PROVIDERS: PCP Internal Medicine; Visit Provider Internal Medicine | DX: Z12.31 Encounter for screening mammogram for malignant neoplasm of breast (principal) | CPT/HCPCS: 77063; 77067 ==

== ENCOUNTER 2025-06-07 09:24 | Outpatient (REF) | payer OTHER, SELFPAY ==
--- NOTE | ~2025-06-07 | US_ITS ---
EXAMINATION: US THYROID HISTORY: E04.1 - Nontoxic single thyroid nodule TECHNIQUE: Real-time grayscale ultrasound imaging was performed and images were reviewed. COMPARISON: Correlation is made with the CT angiogram of the neck dated 03/21/2025. FINDINGS: SIZE: The right thyroid lobe measures 3.3 x 1.4 x 1.1 cm. The left thyroid lobe measures 3.7 x 1.7 x 1.6 cm. The isthmus measures 2 mm. FLOW: Flow to the gland is normal. ECHOGENICITY: The echotexture of the gland is previous. NODULES: There is a 5 mm cyst in the interpolar region of the left thyroid lobe corresponding to the abnormality seen on CT. No solid nodules are identified. US/US thyroid IMPRESSION: 5 mm left thyroid cyst. No solid nodules are identified. ACR TI-RADS Guidelines TR1 (0 points): Benign. No follow-up or biopsy required TR2 (2 points): Not Suspicious. No biopsy or follow up indicated TR3 (3 points): Mildly Suspicious. FNA if >= 2.5 cm, Follow if >= 1.5 cm TR4 (4-6 points): Moderately Suspicious. FNA if >= 1.5 cm, Follow if >= 1.0 cm TR5 (>=7 points): Highly Suspicious. FNA if >= 1.0 cm, Follow if >= 0.5 cm Electronically signed by: Reinier James MD 06/09/2025 07:46 AM EST
--- OUTSIDE RECORDS SUMMARY | 2025-06-07 09:27 | XMS_ITS | Patient Health Record ---
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 Problems Problem Type SNOMED Code ICD Code Onset Dates Problem Status W/U Status Risk Notes Problem Imaging of gastrointestinal tract abnormal (894860596) Abnormal findings on diagnostic imaging of other parts of digestive tract (R93.3) Active confirmed Problem Gastroesophageal reflux disease without esophagitis (182341645) Gastroesophageal reflux disease without esophagitis (K21.9) Active confirmed Plan Of Treatment Future Test Test Name Order Date UPPER GI ENDOSCOPY 12/01/2016 Insurance Providers Payer Name Payer Address Payer Phone Subscriber Number Group Number Insured Name Patient Relationship to Insured Coverage Start Date Coverage End Date [facility] [employer] [facility] [address] [address] [place], [place] [phone] [id number] MERI CESAR Self - patient is the insured Medical (General) History Medical History History ICD Code stage II Hodgkin lymphoma. 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
== END 2025-06-07 09:25 | disposition home or self-care (01) ==
LOC: HO.US 09:24
PROVIDERS: PCP Internal Medicine; Visit Provider Internal Medicine
DX: E04.1 Nontoxic single thyroid nodule (principal)
CPT/HCPCS: 76536

== ENCOUNTER → 2025-06-07 09:25 | Outpatient (BNV) | payer OTHER, SELFPAY | PROVIDERS: PCP Internal Medicine; Visit Provider Radiology Diagnostic Radiology | DX: E04.1 Nontoxic single thyroid nodule (principal) | CPT/HCPCS: 76536 ==

== ENCOUNTER 2025-06-10 16:30 | Outpatient (AMB) | payer OTHER, SELFPAY ==
--- NOTE | 2025-06-10 16:38 | MHC.PC.OV ---
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 Required: No Accompanied by: Self / Same As Patient Allergies fluconazole (From DIFLUCAN) Allergy (Mild, Verified 06/10/25 16:51) RASH codeine (CODEINE) Allergy (Unknown, Verified 06/10/25 16:51) migriane Medication List - Last Reconciled 06/10/25 by Mariella Morel MD [compression stockings As directed] omeprazole 20 mg PO DAILY PRN 90 days Tobacco use date assessed: 06/10/25 Dental Screening Dental Screen Date: 06/10/25 Did you have a dental visit in the last 12 months?: Yes Did you have a dental problem in the last 6 months where you did not have access to dental care?: No Was dental information given to patient?: Patient has dentist HPI HPI Comments History of Present Illness Details This is a 54-year-old female with chronic GERD that comes today for discussion of thyroid ultrasound results. She has a thyroid cyst and because she has a history of Hodgkin lymphoma I will refer her to Endocrinology. She denies any symptoms. GERD stable with PPIs. No changes in weight. No problems swallowing. [facility] Medical History (Updated 06/10/25 @ 16:57 by Mariella Morel MD) Hx of Esquivel's palsy Left hand pain Low back pain Right elbow pain Neck pain Malignant lymphoma, non-Hodgkin's Breast cancer Surgical History History of colonoscopy History of mammogram History of left salpingo-oophorectomy History of right salpingo-oophorectomy History of left breast biopsy History of section Family History Father Stroke FH: testicular cancer Mother Hypertension Asthma Maternal Grandmother Leukemia Social History Household Members: Family Housing: Apartment Alcohol intake: current Alcohol intake frequency: holidays/special occasions only Alcohol type: wine and hard liquor Patient Tobacco Use Status: Former Tobacco user Tobacco use type: Cigarette e-Cigarette/Vaping Use: Never Used Second Hand Smoke Exposure: No Substance Use Type: Marijuana service: No Current occupational status: employed Current occupational exposures/hazards: No Cognitive needs: No Hearing needs: No Vision needs: No Questionnaire Thrive Questionnaire Date Thrive assessed: 06/10/25 I am a: Patient What is your living situation today?: I have a steady place to live Within the past 12 months, did the food you bought not last and you didn't have the money to get more?: Never true Within the past 12 months, did you worry whether your food would run out before you got money to buy more?: Never true Do you have trouble paying for medicines?: No Do you have trouble getting transportation to medical appointments?: No Do you have trouble paying your heating and electricity bill?: No Do you have trouble taking care of your child, family member or friend?: No Do you have trouble with day-to-day activities such as bathing, preparing meals, shopping, managing finances, etc.?: No Are you currently unemployed and looking for a job?: No Are you interested in more education?: No Currently or been in a relationship where the following occur: No concerns reported THRIVE Score: 0 LUPE-7 AMB Questionnaire LUPE-7 Date LUPE - 7 assessed: 03/24/25 Source: Developed by Drs. Reinier Conely, Laure Curry, Gume Power and colleagues, with an educational jose from [employer]. Review of Systems Const All systems reviewed & are unremarkable except as noted in HPI and below Card Denies chest pain at rest, Denies chest pain with activity, Denies edema, Denies irregular heart rhythm, Denies claudication, Denies dyspnea, Denies dyspnea on exertion, Denies orthopnea, Denies paroxysmal nocturnal dyspnea and Denies slow heart rate Resp Denies cough, Denies dyspnea and Denies dyspnea on exertion Physical exam (Primary Care) Vital Signs: Last Vital Signs Pulse 73 06/10/25 16:39 Resp 18 06/10/25 16:39 BP 140/90 H 06/10/25 16:39 Pulse Ox 100 06/10/25 16:39 Oxygen Delivery Method Room Air 06/10/25 16:39 BMI result Body Mass Index 35.2 BMI Assessment/Plan discussion: High BMI High, discussed plan: lifestyle, weight reduction, dietary and physical activity Tobacco/Smoking Status: Tobacco use Status Tobacco use date assessed 06/10/25 06/10/25 16:41 Patient Tobacco Use Status Former Tobacco user 06/10/25 16:41 Tobacco use type Cigarette 06/10/25 16:41 e-Cigarette/Vaping Use Never Used 06/10/25 16:41 Thrive Assessment: Date of Thrive Assessment Date Thrive assessed 06/10/25 06/10/25 16:41 Currently or been in a relationship where the following occur: No concerns reported Resp Effort & Inspection: normal respiratory effort Auscultation: clear to auscultation bilaterally Cardio Jugular venous distension: no JVD Rate: regular rate Rhythm: regular rhythm Heart sounds: S1 normal heart sound present and S2 normal heart sound present Extrem General: Yes full ROM Coding Level of Care Code Est Pt Level 3 (02845) Diagnoses Thyroid cyst E04.1 Chronic GERD K21.9 Time Spent (min) 19 Assessment & Plan Assessment & Plan (1) Thyroid cyst: Code(s): E04.1 - Nontoxic single thyroid nodule Category: Medical (2) Chronic GERD: Code(s): K21.9 - Gastro-esophageal reflux disease without esophagitis Category: Medical Plan Referred to Endocrinology. Continue PPIs. Orders: Orders XR humerus RT Today M79.601 - Pain in right arm
[2025-06-10 16:39] VITALS: BP 140/90; PULSE 73; RESP 18; O2SAT 100; BMI 35.2
--- OUTSIDE RECORDS SUMMARY | 2025-06-10 17:05 | XMS_ITS | Patient Health Record ---
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 Problems Problem Type SNOMED Code ICD Code Onset Dates Problem Status W/U Status Risk Notes Problem Imaging of gastrointestinal tract abnormal (024116410) Abnormal findings on diagnostic imaging of other parts of digestive tract (R93.3) Active confirmed Problem Gastroesophageal reflux disease without esophagitis (713439712) Gastroesophageal reflux disease without esophagitis (K21.9) Active confirmed Plan Of Treatment Future Test Test Name Order Date UPPER GI ENDOSCOPY 12/01/2016 Insurance Providers Payer Name Payer Address Payer Phone Subscriber Number Group Number Insured Name Patient Relationship to Insured Coverage Start Date Coverage End Date [facility] [employer] [facility] [address] [address] [place], [place] [id number] MERI CESAR Self - patient is the insured Medical (General) History Medical History History ICD Code stage II Hodgkin lymphoma. 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
== END 2025-06-10 17:17 | disposition home or self-care (01) ==
LOC: HO.HMCH 16:30
PROVIDERS: PCP Internal Medicine; Visit Provider Internal Medicine
DX: E04.1 Nontoxic single thyroid nodule (principal); K21.9 Gastro-esophageal reflux disease without esophagitis

== ENCOUNTER → 2025-06-10 16:30 | Outpatient (BNVA) | payer OTHER, SELFPAY | PROVIDERS: PCP Internal Medicine; Visit Provider Internal Medicine | DX: K21.9 Gastro-esophageal reflux disease without esophagitis (principal); E04.1 Nontoxic single thyroid nodule | CPT/HCPCS: 99212 ==